=== PATIENT | male | born 1965 | race African-American/Black ===

== ENCOUNTER 2022-03-08 11:03 | Day surgery (SDC) | payer BC ==
[2022-03-04 11:06] VITALS: BMI 25.8
[2022-03-08] MEDS ORDERED: Lidocaine 1% w/Epinephrine 1:100K 20 ML VIAL ONE (13:42)
[2022-03-08] MEDS ORDERED: Bupivacaine 0.25% 10 ML VIAL ONE (13:42)
[2022-03-08] MEDS ORDERED: Heparin 10,000 UNITS/ 10 ML VIAL ONE ×2 (13:42→19:43)
[2022-03-08 13:45] LABS: SARS-CoV-2 NAA Rapid Test Not Detected (NotDetected)
[2022-03-08] MEDS ORDERED: Midazolam HCl 2 mg/2 ml Vial ONE (13:45)
[2022-03-08] MEDS ORDERED: Ketamine 50 MG/ML (10ML VIAL) ONE (13:45)
[2022-03-08] MEDS ORDERED: fentaNYL Citrate/PF 100 MCG/2 ML SYRINGE ONE ×2 (13:45→16:42)
[2022-03-08 14:28] LABS: Anion Gap 25 mmol/L (10-20); BUN (Urea Nitrogen) 110 mg/dL (8.4-25.7); Calc. Creatinine Clearance 6 mL/min (70-130); Calcium 7.2 mg/dL (7.8-10.44); Carbon Dioxide 22 mmol/L (22-29); Chloride 105 mmol/L (98-107); Glucose 90 mg/dL (70-105); Potassium 5.1 mmol/L (3.5-5.1); Sodium 147 mmol/L (136-145)
[2022-03-08] MEDS ORDERED: EPINEPHrine 1 MG/ML AMP ONE (16:45)
[2022-03-08] MEDS ORDERED: SUGAMMADEX SODIUM 200 MG/2 ML VIAL ONE (17:01)
[2022-03-08] MEDS ORDERED: Rocuronium Bromide 10 MG/ML (10ML VIAL) ONE (17:10)
[2022-03-08] MEDS ORDERED: PROPOFOL 200 MG/20 ML VIAL ONE (17:10)
[2022-03-08] MEDS ORDERED: CEFAZOLIN 2 GM VIAL ONE (17:13)
[2022-03-08] MEDS ORDERED: Sodium Chloride 0.9% 100 ML ONE (17:13)
== END 2022-03-08 20:10 | disposition home or self-care (01) ==
LOC: SDC 11:03
PROVIDERS: ATTEND Specialist
PROC: 0DQU4ZZ Repair Omentum, Percutaneous Endoscopic Approach (ICD-10-PCS; principal; 2022-03-08)
PROC: 0WHG43Z Insertion of Infusion Device into Peritoneal Cavity, Percutaneous Endoscopic Approach (ICD-10-PCS; principal; 2022-03-08)
DX: I12.0 Hypertensive chronic kidney disease with stage 5 chronic kidney disease or end stage renal disease (principal); E11.22 Type 2 diabetes mellitus with diabetic chronic kidney disease; N18.6 End stage renal disease; D63.1 Anemia in chronic kidney disease; Z79.82 Long term (current) use of aspirin; Z79.84 Long term (current) use of oral hypoglycemic drugs; Z79.899 Other long term (current) drug therapy; Z99.2 Dependence on renal dialysis; Z20.822 Contact with and (suspected) exposure to COVID-19
CPT/HCPCS: 80048; J0171; J1642; J1644; J2250; J2704; J3490; S0020; U0002